=== PATIENT | female | born 1970 | race Caucasian/White ===

== ENCOUNTER 2016-09-25 19:26 | Emergency (ER) | payer OTHER ==
[~2016-09-25] VITALS: Ht 165.1 cm; Wt 61.2 kg
[2016-09-25 19:55] VITALS: BP 117/66
--- NOTE | 2016-09-25 21:13 | NUR ---
PATIENT AMBULATED TO ER BED 8.
--- NOTE | 2016-09-25 21:15 | NUR ---
PT IS 46/F LEFT LOWER ABD PAIN,SINCE YESTERDAY, WITH NAUSEA. PT STATES MED HX OF GALL STONES IN 2007. DENIES V/D; SKIN IS PINK/WARM/DRY; AAOX4 WITH EVEN AND STEADY GAIT; LUNGS CLEAR BL; HR EVEN AND REGULAR; PT DENIES ANY FEVER, CP, SOB, OR COUGH AT THIS TIME; PATIENT STATES PAIN OF 0/10 AT THIS TIME; VSS; PATIENT POSITIONED FOR COMFORT; HOB ELEVATED; BEDRAILS UP X2; BED DOWN. ER MD MADE AWARE OF PT STATUS.
--- NOTE | 2016-09-25 21:34 | NUR ---
Patient being evaluated by physician at bedside.
[2016-09-25] MEDS ORDERED: fentaNYL 0.05 MG/ML VIAL IM ONE (21:35)
--- NOTE | 2016-09-25 22:11 | NUR ---
PT HAVING US DONE AT BEDSIDE.
[2016-09-25 23:02] VITALS: BP 109/68
--- NOTE | 2016-09-26 00:20 | NUR ---
PT WAS DISCHARGED BY ER MD BUT PT LEFT UNIT BEFORE RECEIVING DISCHARGE INSTRUCTIONS, PRESCRIPTIONS AND PAPERWORK. PATIENT DID NOT PROVIDE ANY SIGNATURES OR INFORMED ANY STAFF MEMBER OF HER LEAVING.
== END 2016-09-26 00:20 | disposition home or self-care (01) ==
LOC: MED 19:26
DX: R10.2 Pelvic and perineal pain (principal); Z90.89 Acquired absence of other organs
CPT/HCPCS: 76856; 81002; 81025; 96372; 99284; J3010; Q0092